=== PATIENT | male | born 1940 | race Caucasian/White ===

== ENCOUNTER 2018-02-25 13:40 | Emergency (ER) | payer MEDICARE, OTHER ==
[~2018-02-25] VITALS: Ht 177.8 cm; Wt 77.1 kg
[~2018-02-25 13:40] MED LIST: ASPIR-LOW81 MG PO; ATORVASTATIN CA10 MG PO; AVAPRO150 MG PO; BLOOD PRESSURE; FLUOROMETHOLONE5 ML OP; LIPITOR20 MG PO; PRILOSEC10 MG; PRILOSEC20 MG PO; PROBIOTIC & AC1 EACH PO; VITAMIN D31000 UNIT PO; diclofenac PO
--- NOTE | 2018-02-25 15:15 | Diagnostic Imaging Report ---
PROCEDURE:KNEE LEFT THREE VIEWS COMPARISON:None. INDICATIONS:LEFT KNEE PAIN FOR MONTHS FINDINGS: There are no fractures, dislocations, lytic or blastic lesions. The bones are well-mineralized. The soft-tissues are unremarkable. Mild vascular calcifications. CONCLUSION: No acute fracture or dislocation of the left knee. Dictated by: Kiko Love M.D. on 02/25/2018 at 15:18 Electronically approved by: Kiko Love M.D. on 02/25/2018 at 15:18
[2018-02-25] MEDS ORDERED: ACETAMINOPHEN 1000 MG/100 ML 0 ML IV ONE (15:43)
== END 2018-02-25 17:43 | disposition home or self-care (01) ==
LOC: ER 13:40
DX: M25.562 Pain in left knee (principal); M23.52 Chronic instability of knee, left knee
CPT/HCPCS: 99283

== ENCOUNTER 2022-03-08 12:06 | Emergency (ER) | payer MEDICARE, OTHER ==
[~2022-03-08] VITALS: Ht 177.8 cm; Wt 77.1 kg
[2022-03-08 13:48] LABS: BASOPHILS # (AUTO) 0.1 (0.0-0.1); BASOPHILS % 1.1 % (0.0-1.0); EOSINOPHILS # (AUTO) 0.3 (0.0-0.4); EOSINOPHILS % 7.2 % (0.0-6.0); HEMATOCRIT 41.6 % (38.2-49.6); HEMOGLOBIN 12.8 g/dL (14.0-18.0); LYMPHOCYTES # (AUTO) 1.2 (1.0-3.2); LYMPHOCYTES % 25.1 % (18.0-39.1); MEAN CORPUSCULAR HEMOGLOBIN 29.4 pg (28-32); MEAN CORPUSCULAR HGB CONC 30.8 g/dL (31-35); MEAN CORPUSCULAR VOLUME 95.4 fL (81-99); MONOCYTES # (AUTO) 0.5 (0.2-0.8); MONOCYTES % 11.3 % (4.4-11.3); NEUTROPHILS # (AUTO) 2.6 (2.1-6.9); NEUTROPHILS % 55.1 % (38.7-80.0); PLATELET COUNT 250 x10e3/uL (140-360); RED BLOOD COUNT 4.36 x10e6/uL (4.3-5.7)
[2022-03-08 14:03] LABS: INR 0.96; PROTHROMBIN TIME 13.7 seconds (11.9-14.5)
[2022-03-08 14:04] LABS: PARTIAL THROMBOPLASTIN TIME 28.9 seconds (23.8-35.5)
[2022-03-08 14:16] LABS: ALBUMIN 3.3 g/dL (3.5-5.0); ALBUMIN/GLOBULIN RATIO 0.9 (0.8-2.0); ANION GAP 10.9 mmol/L (8-16); CALCIUM 8.3 mg/dL (8.4-10.2); CREATININE, SERUM 0.92 mg/dL (0.72-1.25); POTASSIUM 3.9 mmol/L (3.5-5.1)
[2022-03-08 14:44] LABS: CLARITY,URINE SL CLOUDY (CLEAR); COLOR,URINE STRAW (YELLOW); KETONES,URINE TRACE (NEGATIVE); LEUKOCYTE ESTERASE ,URINE NEGATIVE (NEGATIVE); NITRITE,URINE NEGATIVE (NEGATIVE); PROTEIN,URINE DIPSTICK NEGATIVE (NEGATIVE); URINE UROBILINOGEN 0.2 mg/dL (0.2 - 1)
[2022-03-08 14:57] LABS: BACTERIA,URINE FEW /HPF; MUCUS,URINE FEW (RARE); WBC,URINE (MAN) 0-5 /HPF (0-5)
[2022-03-08] MEDS ORDERED: SODIUM CHLORIDE 0.9% 500ML 500 ML IV ONE (16:30)
[2022-03-08] MEDS ORDERED: KETOROLAC TROMETHAMINE 30 MG/ML VIAL IV ONE (16:30)
[2022-03-08] MEDS ORDERED: CEFUROXIME250 MG PO (18:05)
[2022-03-08] MEDS ORDERED: COLACE100 M1 PO (18:05)
[2022-03-08] MEDS ORDERED: ULTRAM 50MG50 MG PO (18:05)
[2022-03-08 18:14] VITALS: BP 138/81
== END 2022-03-08 18:18 | disposition home or self-care (01) ==
LOC: ER 12:22
DX: R10.31 Right lower quadrant pain (principal); R33.9 Retention of urine, unspecified; N13.2 Hydronephrosis with renal and ureteral calculous obstruction; K57.90 Diverticulosis of intestine, part unspecified, without perforation or abscess without bleeding; N40.1 Benign prostatic hyperplasia with lower urinary tract symptoms; I10 Essential (primary) hypertension; E78.5 Hyperlipidemia, unspecified; K21.9 Gastro-esophageal reflux disease without esophagitis
CPT/HCPCS: 36415; 51702; 71045; 74176; 80053; 81001; 83735; 85025; 85610; 85730; 87086; 99284; J1885; J7040

== ENCOUNTER → 2024-02-28 | Outpatient (REF) | payer MEDICARE, OTHER ==
[~2024-02-28] MED LIST changes: +CEFUROXIME250 MG PO; +COLACE100 M1 PO; +ULTRAM 50MG50 MG PO
== END ==
LOC: DX 10:31
PROVIDERS: ATTEND Otolaryngology
DX: R13.13 Dysphagia, pharyngeal phase (principal)
CPT/HCPCS: 74230